=== PATIENT | male | born 1955 | race African-American/Black ===

== ENCOUNTER → 2017-07-20 | Outpatient (CLI) | payer OTHER ==
[~2017-07-20] MED LIST: AMAR2TAB PO; ASPI81TA82 PO; JANU25TA PO; LOSA50TA PO; METO100 PO; PANT20 PO; PRAS10TA PO; ZOCO40TA PO
[2017-07-20 14:25] LABS: AUTOMATED NEUTROPHIL # 2.5 TH/MM3 (1.8-7.7); BASOPHIL % 0.9 % (0.0-2.0); EOSINOPHIL # 0.2 TH/MM3 (0-0.4); EOSINOPHIL % 3.1 % (0.0-4.0); HEMATOCRIT 42.4 % (39.0-51.0); HEMO FLAGS DIFF FINAL; LYMPH % 40.6 % (9.0-44.0); LYMPHOCYTE # 2.2 TH/MM3 (1.0-4.8); MEAN CORPUSCULAR HEMOGLOBIN 28.1 PG (27.0-34.0); MEAN CORPUSCULAR HGB CONC 32.3 % (32.0-36.0); MONO % 9.4 % (0.0-8.0); PLATELET COUNT 194 TH/MM3 (150-450); RED BLOOD COUNT 4.88 MIL/MM3 (4.50-5.90); WHITE BLOOD COUNT 5.4 TH/MM3 (4.0-11.0)
[2017-07-20 14:45] LABS: ANION GAP 8 MEQ/L (5-15); AST (GOT) 22 U/L (15-37); BICARBONATE 25.4 MEQ/L (21.0-32.0); BLOOD UREA NITROGEN 23 MG/DL (7-18); CHLORIDE 106 MEQ/L (98-107); GLOMERULAR FILTRATION RATE 43 ML/MIN (>89); GLUCOSE,FASTING 106 MG/DL (74-99); SODIUM (NA) 139 MEQ/L (136-145)
[2017-07-20 14:50] LABS: ALKALINE PHOSPHATASE 180 U/L (45-117); ALT (GPT) 29 U/L (12-78); TOTAL BILIRUBIN ADULT 0.8 MG/DL (0.2-1.0)
== END ==
LOC: CLAB 13:58
PROVIDERS: ATTEND Family Medicine
DX: I25.10 Atherosclerotic heart disease of native coronary artery without angina pectoris (principal); I12.9 Hypertensive chronic kidney disease with stage 1 through stage 4 chronic kidney disease, or unspecified chronic kidney disease; N18.9 Chronic kidney disease, unspecified; E11.22 Type 2 diabetes mellitus with diabetic chronic kidney disease; E78.2 Mixed hyperlipidemia; J30.1 Allergic rhinitis due to pollen; Z12.5 Encounter for screening for malignant neoplasm of prostate
CPT/HCPCS: 36415; 80053; 84153; 85025

== ENCOUNTER → 2017-11-30 | Outpatient (CLI) | payer OTHER ==
[2017-11-30 08:10] LABS: BICARBONATE 27.2 MEQ/L (21.0-32.0); BLOOD UREA NITROGEN 22 MG/DL (7-18); CALCIUM 9.2 MG/DL (8.5-10.1); CHLORIDE 105 MEQ/L (98-107); CREATININE 1.53 MG/DL (0.60-1.30); GLOMERULAR FILTRATION RATE 56 ML/MIN (>89); GLUCOSE,FASTING 162 MG/DL (74-99); PHOSPHORUS 2.9 MG/DL (2.5-4.9); SODIUM (NA) 140 MEQ/L (136-145)
[2017-11-30 16:53] LABS: HEMOGLOBIN A1C 8.2 % (4.3-6.0)
== END ==
LOC: CLAB 07:19
PROVIDERS: ATTEND Internal Medicine Nephrology
DX: E55.9 Vitamin D deficiency, unspecified (principal); N18.3 Chronic kidney disease, stage 3 (moderate); E11.22 Type 2 diabetes mellitus with diabetic chronic kidney disease
CPT/HCPCS: 36415; 80048; 82043; 82306; 83036; 83970; 84100

== ENCOUNTER → 2018-01-12 | Outpatient (CLI) | payer OTHER ==
[2018-01-12 07:26] LABS: AUTOMATED NEUTROPHIL # 1.8 TH/MM3 (1.8-7.7); BASOPHIL % 0.7 % (0.0-2.0); EOSINOPHIL # 0.2 TH/MM3 (0-0.4); EOSINOPHIL % 3.7 % (0.0-4.0); HEMATOCRIT 42.4 % (39.0-51.0); HEMOGLOBIN 14.2 GM/DL (13.0-17.0); LYMPH % 51.2 % (9.0-44.0); LYMPHOCYTE # 2.6 TH/MM3 (1.0-4.8); MEAN CELL VOLUME 87.9 FL (80.0-100.0); MEAN CORPUSCULAR HEMOGLOBIN 29.4 PG (27.0-34.0); MEAN CORPUSCULAR HGB CONC 33.4 % (32.0-36.0); MEAN PLATELET VOLUME 8.9 FL (7.0-11.0); MONOCYTE # 0.5 TH/MM3 (0-0.9); NEUT % 35.4 % (16.0-70.0); PLATELET COUNT 194 TH/MM3 (150-450); RED BLOOD COUNT 4.83 MIL/MM3 (4.50-5.90); WHITE BLOOD COUNT 5.1 TH/MM3 (4.0-11.0)
[2018-01-12 08:06] LABS: ALBUMIN 3.9 GM/DL (3.4-5.0); ALT (GPT) 41 U/L (12-78); AST (GOT) 32 U/L (15-37); BICARBONATE 31.2 MEQ/L (21.0-32.0); CALCIUM 9.3 MG/DL (8.5-10.1); CHLORIDE 103 MEQ/L (98-107); CREATININE 1.66 MG/DL (0.60-1.30); GLOMERULAR FILTRATION RATE 51 ML/MIN (>89); GLUCOSE,FASTING 183 MG/DL (74-99); SODIUM (NA) 141 MEQ/L (136-145)
[2018-01-12 08:09] LABS: ALKALINE PHOSPHATASE 221 U/L (45-117); BLOOD UREA NITROGEN 22 MG/DL (7-18); TOTAL BILIRUBIN ADULT 0.6 MG/DL (0.2-1.0); TOTAL PROTEIN 7.9 GM/DL (6.4-8.2)
== END ==
LOC: CLAB 06:51
PROVIDERS: ATTEND Family Medicine
DX: I10 Essential (primary) hypertension (principal); E11.9 Type 2 diabetes mellitus without complications; Z12.5 Encounter for screening for malignant neoplasm of prostate
CPT/HCPCS: 36415; 80053; 84153; 85025

== ENCOUNTER 2018-05-30 19:14 | Observation (INO) ==
[2018-05-30] MEDS ORDERED: Aspirin 325 MG Tablet PO ONE ×2 (20:10→20:45)
[2018-05-30 20:53] LABS: Baso % (Auto) 0.5 % (0.0-2.0); Eos # (Auto) 0.2 th/mm3 (0.0-0.4); Eos % (Auto) 2.1 % (0.0-4.0); Hematocrit 44.6 % (39.0-51.0); Hemoglobin 14.4 gm/dL (13.0-17.0); Lymph # (Auto) 2.4 th/mm3 (1.0-4.8); Lymph % (Auto) 31.4 % (9.0-44.0); Mean Corpuscular HGB Conc 32.3 % (32.0-36.0); Mean Corpuscular Hemoglobin 27.9 pg (27.0-34.0); Mean Corpuscular Volume 86.4 fL (80.0-100.0); Mean Platelet Volume 9.6 fL (7.0-11.0); Mono # (Auto) 0.5 th/mm3 (0.0-0.9); Mono % (Auto) 7.3 % (0.0-8.0); Neut # (Auto) 4.4 th/mm3 (1.8-7.7); Neut % (Auto) 58.7 % (16.0-70.0); Platelet Count 209 th/mm3 (150-450); Red Blood Count 5.16 mil/mm3 (4.50-5.90); Red Cell Distribution Width 14.9 % (11.6-17.2); White Blood Count 7.5 th/mm3 (4.0-11.0)
--- NOTE | 2018-05-30 20:58 | XR ---
EXAM DATE: 05/30/2018 8:43 PM EDT AGE/SEX: 62 years / Male INDICATIONS: Chest pain. CLINICAL DATA: This is the patient's initial encounter. Patient reports that signs and symptoms have been present for 1 day and indicates a pain score of 6/10. MEDICAL/SURGICAL HISTORY: Cardiovascular disease. Diabetes. Hypertension. Carotid stent. Cor onary artery stent. COMPARISON: [facility] [place] [facility] ONLY, 07/09/2016. . FINDINGS: A single AP view of the chest demonstrates the lungs to be symmetrically aerated without evidence of mass, infiltrate or effusion. The cardiomediastinal contours are unremarkable. Osseous structures a re intact. CONCLUSION: Negative for acute process report Electronically signed by: Lebron Stafford MD 05/30/2018 8:57 PM EDT
[2018-05-30 21:05] LABS: Activated Partial Thrombo Time 25.9 sec (24.3-30.1); INR 1.1 Ratio; Prothrombin Time 10.8 sec (9.8-11.6)
[2018-05-30 21:22] LABS: Alanine Aminotransferase 24 U/L (12-78); Albumin 3.7 g/dL (3.4-5.0); Alkaline Phosphatase 186 U/L (45-117); Anion Gap 6 meq/L (5-15); Aspartate Aminotransferase 20 U/L (15-37); Blood Urea Nitrogen 20 mg/dL (7-18); Calcium 9.1 mg/dL (8.5-10.1); Carbon Dioxide 28.6 meq/L (21.0-32.0); Chloride 105 meq/L (98-107); Creatine Kinase 237 U/L (39-308); Glomerular Filtration Rate 50 mL/min (>89); Glucose,Random 141 mg/dL (74-106); Potassium 4.5 meq/L (3.5-5.1); Sodium 140 meq/L (136-145)
[2018-05-30 21:35] LABS: Creatine Kinase MB 1.1 ng/mL (0.5-3.6)
[2018-05-30] MEDS ORDERED: Morphine Inj 4 MG/ML Vial IV.PUSH ONE (21:55)
--- NOTE | 2018-05-30 22:12 | ED ---
HPI General Chief Complaint: Chest Pain Stated Complaint: chest pain Time Seen by Provider: 05/30/18 20:02 Source: patient Mode of arrival: ambulatory Limitations: no limitations History of Present Illness HPI narrative: 62-year-old male the presents to the ED for evaluation of left- sided chest pain. Patient has had this left-sided chest pain since . Per patient it comes and goes but more severe today. Per patient last time he had something like this he had 3 stents in his heart. Per patient this happened in 2010. He has a history of diabetes, high blood pressure, high cholesterol and smoking. He states that he follows with cardiology but has not done so in some time. Per patient he has not had a stress test in about a year. No other medical issues. He states the pain currently 7 out of 10. Has a known history of hiatal hernia. No recent travel. No other medical issues. He did took an aspirin today. He does take nitro but has not taken any nitro today. Nothing seems to make the pain better or worse. No other urinary or bowel movement issues. No nausea or vomiting. Pain does radiate to the right jaw. Complete Quality Measures for STEMI Alert Patients Related Data Home Medications Medication Instructions Recorded Confirmed aspirin 81 mg PO DAILY 05/30/18 05/30/18 empagliflozin [Jardiance] 25 mg PO DAILY 05/30/18 05/30/18 glimepiride 2 mg PO QAM 05/30/18 05/30/18 hydralazine 50 mg PO BID 05/30/18 05/30/18 losartan 100 mg PO DAILY 05/30/18 05/30/18 metoprolol tartrate 50 mg PO BID 05/30/18 05/30/18 prasugrel [Effient] 25 mg PO DAILY 05/30/18 05/30/18 simvastatin 20 mg PO QPM 05/30/18 05/30/18 Allergies Allergy/AdvReac Type Severity Reaction Status Date / Time monosodium glutamate Allergy Severe Respiratory Verified 05/30/18 19:57 Failure metformin Allergy Unknown Shortness Verified 05/30/18 19:57 of Breath Review of Systems ROS Unobtainable All other systems reviewed negative except as stated in HPI [facility] Medical History Medical History History of common carotid artery stent placement (Acute) Surgical History Surgical History History of hernia surgery (Acute) Hx of heart surgery (Acute) Hx of neck surgery (Acute) Stented coronary artery (Acute) Social History Social History Smoking Status: Light tobacco smoker Tobacco Type: Cigars How Often Do You Have a Drink Containing Alcohol: Never Recent Travel in [facility] within the Last 8 Weeks: No Recent Out of Country Travel within the Last 8 Weeks: No Immunization History Tetanus Immunization: Unsure Exam Narrative Exam Narrative: GENERAL: Well-appearing SKIN: Focused skin assessment warm/dry. HEAD: Atraumatic. Normocephalic. EYES: Pupils equal and round. No scleral icterus. No injection or drainage. ENT: No nasal bleeding or discharge. Mucous membranes pink and moist. Tongue is midline. No uvuladeviation. NECK: Trachea midline. No JVD. CARDIOVASCULAR: Regular rate and rhythm. No murmur appreciated. RESPIRATORY: No accessory muscle use. Clear to auscultation. Breath sounds equal bilaterally. GASTROINTESTINAL: Abdomen soft, non-tender, nondistended. Hepatic and splenic margins not palpable. MUSCULOSKELETAL: No obvious deformities. No clubbing. No cyanosis. No edema. Full range of motion of the upper and lower extremities bilaterally. 2+ pulses bilaterally. NEUROLOGICAL: Awake and alert. No obvious cranial nerve deficits. Motor grossly within normal limits. Normal speech. PSYCHIATRIC: Appropriate mood and affect; insight and judgment normal. Course Initial Documented Vital Signs Temperature 98.6 F 05/30/18 19:54 Pulse Rate 76 05/30/18 19:54 Respiratory Rate 18 05/30/18 19:54 Blood Pressure 166/85 H 05/30/18 19:54 Pulse Oximetry 97 05/30/18 19:54 Last Documented Vital Signs Temperature 98.6 F 05/30/18 19:54 Pulse Rate 62 05/30/18 20:10 Respiratory Rate 16 05/30/18 20:46 Blood Pressure 156/79 H 05/30/18 20:10 Pulse Oximetry 97 05/30/18 20:14 Medical Decision Making VERÓNICA Attestation VERÓNICA supervised visit: Yes Attestation: The history, exam, and medical decision-making in the associated mid-level provider note were completed with my assistance. I reviewed and agree with the findings presented. I attest that I had a [id number] encounter with the patient on the same day, and personally performed and documented my assessment and findings in the medical record. *My assessment and Findings: 62-year-old man with chest pain, retrosternal, radiating up jaw, similar to previous anginal chest pain. No nausea vomiting. No association with food. EKG is unremarkable. Multiple stents in the past, last cardiac workup was about a year ago with his doctor Dr. Bradley. Workups unremarkable other than minimally elevated lipase. I do not think this is related. History is not suggestive of pancreatitis. Pain relieved with nitro. Will plan on admission no chest pain center for serial cardiac enzymes. MDM Narrative Medical decision making narrative: 62-year-old male the presents to the ED for evaluation of chest pain. Patient was properly examined and was found to have signs and symptoms consistent appears to be chest pain. Concerning for ACS. Labs and imaging order. Labs and imaging were essentially unremarkable. EKG unremarkable. No sign of ST elevations no sign of acute ischemia. Patient did not get relief with aspirin or nitroglycerin. Patient was given morphine for it. Case discussed with my attending Dr. hutchison who recommends admission to the chest pain center. This was discussed with the patient who agrees with admission plan to the chest pain center. Differential Diagnosis Differential Diagnosis: Chest pain versus atypical chest pain versus ACS Medical Records Medical records reviewed: Yes I reviewed the patient's medical records. Lab Data Lab results reviewed: Yes I reviewed the patient's lab results. Lab results narrative: Lipase and troponin and CK-MB negative. Result diagrams: 05/30/18 20:16 05/30/18 20:16 Lab Results 05/30/18 05/30/18 05/30/18 Range/Units 20:16 20:16 20:16 WBC 7.5 (4.0-11.0) th/mm3 RBC 5.16 (4.50-5.90) mil/mm3 Hgb 14.4 (13.0-17.0) gm/dL Hct 44.6 (39.0-51.0) % MCV 86.4 (80.0-100.0) fL MCH 27.9 (27.0-34.0) pg MCHC 32.3 (32.0-36.0) % RDW 14.9 (11.6-17.2) % Plt Count 209 (150-450) th/mm3 MPV 9.6 (7.0-11.0) fL Neut % (Auto) 58.7 (16.0-70.0) % Lymph % (Auto) 31.4 (9.0-44.0) % [place] % (Auto) 7.3 (0.0-8.0) % Eos % (Auto) 2.1 (0.0-4.0) % Baso % (Auto) 0.5 (0.0-2.0) % Neut # (Auto) 4.4 (1.8-7.7) th/mm3 Lymph # (Auto) 2.4 (1.0-4.8) th/mm3 [place] # (Auto) 0.5 (0.0-0.9) th/mm3 Eos # (Auto) 0.2 (0.0-0.4) th/mm3 Baso # (Auto) 0.0 (0.0-0.2) th/mm3 WBC Differential . Differential Comment Auto diff final PT 10.8 (9.8-11.6) sec INR 1.1 Ratio APTT 25.9 (24.3-30.1) sec Sodium 140 (136-145) meq/L Potassium 4.5 (3.5-5.1) meq/L Chloride 105 (98-107) meq/L Carbon Dioxide 28.6 (21.0-32.0) meq/L Anion Gap 6 (5-15) meq/L BUN 20 H (7-18) mg/dL Creatinine 1.68 H (0.60-1.30) mg/dL Estimated GFR 50 L (>89) mL/min Random Glucose 141 H (74-106) mg/dL Calcium 9.1 (8.5-10.1) mg/dL Total Bilirubin 0.7 (0.2-1.0) mg/dL AST 20 (15-37) U/L ALT 24 (12-78) U/L Alkaline Phosphatase 186 H (45-117) U/L Total Creatine Kinase 237 (39-308) U/L CK-MB (CK-2) 1.1 (0.5-3.6) ng/mL Troponin I Less than 0.02 L (0.02-0.05) ng/mL Total Protein 8.0 (6.4-8.2) g/dL Albumin 3.7 (3.4-5.0) g/dL Lipase (73-393) U/L 05/30/18 Range/Units 20:16 WBC (4.0-11.0) th/mm3 RBC (4.50-5.90) mil/mm3 Hgb (13.0-17.0) gm/dL Hct (39.0-51.0) % MCV (80.0-100.0) fL MCH (27.0-34.0) pg MCHC (32.0-36.0) % RDW (11.6-17.2) % Plt Count (150-450) th/mm3 MPV (7.0-11.0) fL Neut % (Auto) (16.0-70.0) % Lymph % (Auto) (9.0-44.0) % [place] % (Auto) (0.0-8.0) % Eos % (Auto) (0.0-4.0) % Baso % (Auto) (0.0-2.0) % Neut # (Auto) (1.8-7.7) th/mm3 Lymph # (Auto) (1.0-4.8) th/mm3 [place] # (Auto) (0.0-0.9) th/mm3 Eos # (Auto) (0.0-0.4) th/mm3 Baso # (Auto) (0.0-0.2) th/mm3 WBC Differential Differential Comment PT (9.8-11.6) sec INR Ratio APTT (24.3-30.1) sec Sodium (136-145) meq/L Potassium (3.5-5.1) meq/L Chloride (98-107) meq/L Carbon Dioxide (21.0-32.0) meq/L Anion Gap (5-15) meq/L BUN (7-18) mg/dL Creatinine (0.60-1.30) mg/dL Estimated GFR (>89) mL/min Random Glucose (74-106) mg/dL Calcium (8.5-10.1) mg/dL Total Bilirubin (0.2-1.0) mg/dL AST (15-37) U/L ALT (12-78) U/L Alkaline Phosphatase (45-117) U/L Total Creatine Kinase (39-308) U/L CK-MB (CK-2) (0.5-3.6) ng/mL Troponin I (0.02-0.05) ng/mL Total Protein (6.4-8.2) g/dL Albumin (3.4-5.0) g/dL Lipase 522 H (73-393) U/L Imaging Data Attestation: I personally reviewed and interpreted this imaging study as follows : Radiologist's impression: Chest X-Ray 05/30/18 20:11 CONCLUSION: Negative for acute process report ECG Data Attestation: I personally reviewed and interpreted this ECG as follows: Interpretation: EKG shows sinus rhythm with no sign of acute ischemia and arrhythmia read by me and attending. No ST elevations. Discharge Plan Discharge Disposition Patient Disposition: 30 Still Patient Discharge Details Diagnosis: Chest pain Physicians Team ED Provider: Husam Hutchison ED Midlevel Provider: Michael Brown Primary Care Provider: Zbigniew Brown Attending Provider: Garth Gallegos Status ED Status: Admitted Observation Patient
[2018-05-30] MEDS ORDERED: Acetaminophen 500 MG Tablet PO PRN (22:27)
[2018-05-30] MEDS ORDERED: Morphine Inj 4 MG/ML Vial IV.PUSH PRN (22:27)
[2018-05-30 23:19] LABS: Creatine Kinase 173 U/L (39-308)
[2018-05-31 03:19] LABS: Creatine Kinase 167 U/L (39-308)
[2018-05-31] MEDS ORDERED: Aspirin 325 MG Tablet PO SCH (09:00)
--- NOTE | 2018-05-31 09:34 | P.HPCA ---
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 He has had 3 stents in the past the first [address] Chavez one in 2000-03-02 in 2007-11/[address]o. He is also had a right endarterectomy carried out by Dr. Guo. He presents now with 4 days of epigastric left lower chest discomfort that began postprandially on this pain is at times severe grating 7-8 out of 10 but is off and on. However on Thursday and Thursday the pain was present most of the day. Is described as a squeezing epigastric pain that radiates through to his back however he also had some right-sided jaw pain reminiscent of discomfort he has had prior to his stents. Associated symptoms include a sense of bloating and feeling full. Precipitating factors are predominantly eating there are no good relieving factors. Patient has a history of diabetes hypertension and hyperlipidemia Review of Systems Review of systems is entirely negative other than current HPI All other systems reviewed negative except as stated in HPI PMFSH - History History Provided By: Patient - Medical History Medical History: Medical History (Last Reviewed 05/30/18 @ 22:09 by DEEPA Lau) History of common carotid artery stent placement - Surgical History Surgical History: Surgical History (Last Updated 05/31/18 @ 09:25 by David Balderas MD) Stented coronary artery (Acute) History of hernia surgery (Acute) Hx of heart surgery Hx of neck surgery - Family History Family History: Family History (Last Updated 05/31/18 @ 09:27 by David Balderas MD) Mother CVA (cerebral vascular accident) Father CVA (cerebral vascular accident) - Tobacco History Second Hand Smoke Exposure: No Tobacco Use In Past 30 Days: Yes Smoking Status: Light tobacco smoker Tobacco Type: Cigars Cigarettes Per Day: 1 - Alcohol History How Often Do You Have a Drink Containing Alcohol: Never - Substance Use History Substance History: No History of Abuse - Travel History Recent Travel in the [place] Within the Last 8 Weeks: No Recent Travel Out of the Country Within the Last 8 Weeks: No - Immunization History Tetanus Immunization: Unsure Medications and Allergies Active Medications: Active Medications Acetaminophen (Tylenol) 500 mg PO Q4H PRN PRN Reason: HEADACHE Hydrocodone Bitart/Acetaminophen ([place] 7.5/325) 1 tab PO Q4H PRN PRN Reason: PAIN SCALE 1 TO 7 Aspirin (Aspirin) 325 mg PO DAILY KESHA Morphine Sulfate (Morphine Inj) 2 mg IV.PUSH Q4H PRN PRN Reason: PAIN SCALE 8 TO 10 Nitroglycerin (Nitrostat Sl) 0.4 mg SL Q5M PRN PRN Reason: CHEST PAIN Ondansetron HCl (Zofran Inj) 4 mg IV.PUSH Q6H PRN PRN Reason: NAUSEA Sodium Chloride (Ns Flush) 2 ml IV.FLUSH BID KESHA Sodium Chloride (Ns Flush) 2 ml IV.FLUSH PRN PRN PRN Reason: FLUSH AFTER USING IV ACCESS Allergies Allergy/AdvReac Type Severity Reaction Status Date / Time monosodium glutamate Allergy Severe Respiratory Verified 05/30/18 19:57 Failure metformin Allergy Unknown Shortness Verified 05/30/18 19:57 of Breath Home Medications Medication Instructions Recorded Confirmed Type aspirin 81 mg PO DAILY 05/30/18 05/31/18 History empagliflozin [Jardiance] 25 mg PO DAILY 05/30/18 05/31/18 History glimepiride 2 mg PO QAM 05/30/18 05/31/18 History hydralazine 50 mg PO BID 05/30/18 05/31/18 History losartan 100 mg PO DAILY 05/30/18 05/31/18 History metoprolol tartrate 50 mg PO BID 05/30/18 05/31/18 History prasugrel [Effient] 25 mg PO DAILY 05/30/18 05/31/18 History simvastatin 20 mg PO QPM 05/30/18 05/31/18 History Exam Vital signs: Vital Signs 05/30/18 19:54 05/30/18 20:10 05/30/18 20:14 Temperature 98.6 F Pulse Rate 76 62 Respiratory Rate 18 16 Blood Pressure 166/85 H 156/79 H Pulse Oximetry 97 97 97 05/30/18 20:46 05/30/18 22:00 05/31/18 01:56 Temperature Pulse Rate 62 60 Respiratory Rate 16 16 Blood Pressure 123/72 Pulse Oximetry 95 05/31/18 02:12 05/31/18 08:00 Temperature 98.4 F 98.4 F Pulse Rate 78 57 L Respiratory Rate 16 18 Blood Pressure 121/78 118/72 Pulse Oximetry 97 96 Intake & Output 05/30/18 05/31/18 05/31/18 18:59 06:59 18:59 Output Total 300 / 300 Balance -300 / -300 Weight 105 kg Output: Urine 300 / 300 Other: Date of Last Bowel Movement 05/30/18 Narrative: Well-nourished well-developed man resting comfortably in bed Head normocephalic atraumatic balding Eyes PERRLA EOMI. Bilateral cataracts mild. EOMI. Sclera clear no lesions Nares are open bilaterally with no obstruction or lesions Mouth mucous membranes moist and well papillated upper partial plate in place there are no lesions good dentition no inflammation Neck is supple no JVD masses nodes or bruits there is a well-healed surgical scar on the right side from an endarterectomy Chest is clear to auscultation with no rales wheezes or rhonchi and good bilateral breath sounds Cardiovascular PMI is not displaced there is a 2/6 systolic murmur but no gallop or rub The abdomen is slightly tender in the left epigastric area however there is no guarding or rebound and no masses palpable Extremities no clubbing cyanosis or edema pulses are intact and there is no tenderness heat or swelling Neurologically cranial nerves are intact motor is 4+ to all extremities Psychiatrically patient is alert oriented demonstrates good memory affect and judgment Results 05/30/18 20:16 05/30/18 20:16 Cardiac Enzymes 05/30/18 05/30/18 05/31/18 Range/Units 20:16 22:55 02:33 AST 20 (15-37) U/L CK-MB (CK-2) 1.1 (0.5-3.6) ng/mL Troponin I Less than 0.02 L Less than 0.02 L Less than 0.02 L (0.02-0.05) ng/mL Coagulation 05/30/18 Range/Units 20:16 PT 10.8 (9.8-11.6) sec APTT 25.9 (24.3-30.1) sec CBC 05/30/18 Range/Units 20:16 WBC 7.5 (4.0-11.0) th/mm3 RBC 5.16 (4.50-5.90) mil/mm3 Hgb 14.4 (13.0-17.0) gm/dL Hct 44.6 (39.0-51.0) % Plt Count 209 (150-450) th/mm3 Neut # (Auto) 4.4 (1.8-7.7) th/mm3 Lymph # (Auto) 2.4 (1.0-4.8) th/mm3 [place] # (Auto) 0.5 (0.0-0.9) th/mm3 Eos # (Auto) 0.2 (0.0-0.4) th/mm3 Baso # (Auto) 0.0 (0.0-0.2) th/mm3 Comprehensive Metabolic Panel 05/30/18 Range/Units 20:16 Sodium 140 (136-145) meq/L Potassium 4.5 (3.5-5.1) meq/L Chloride 105 (98-107) meq/L Carbon Dioxide 28.6 (21.0-32.0) meq/L BUN 20 H (7-18) mg/dL Creatinine 1.68 H (0.60-1.30) mg/dL Calcium 9.1 (8.5-10.1) mg/dL AST 20 (15-37) U/L ALT 24 (12-78) U/L Alkaline Phosphatase 186 H (45-117) U/L Total Protein 8.0 (6.4-8.2) g/dL Albumin 3.7 (3.4-5.0) g/dL Intake and Output 05/30/18 05/31/18 05/31/18 22:59 06:59 14:59 Output Total 300 / 300 Balance -300 / -300 Output: Urine 300 / 300 Other: Date of Last Bowel Movement 05/30/18 Weight 105 kg 105 kg - Imaging and Cardiology Cardiac cath: report reviewed EKG results: report reviewed (Patient shows elevated alkaline phosphatase and lipase consistent with mild pancreatitis which would also be consistent with his current presentation) Caprini VTE Risk Assessment Caprini VTE Risk Assessment: No/Low Risk (score <= 1) Caprini Risk Assessment Model: Point Value = 1 Point Value = 2 Point Value = 3 Point Value = 5 Age 41-60 Minor surgery BMI > 25 kg/m2 Swollen legs Varicose veins or History of unexplained or recurrent spontaneous Oral contraceptives or hormone replacement Sepsis (< 1 month) Serious lung disease, including pneumonia (< 1 month) Abnormal pulmonary function Acute myocardial infarction Congestive heart failure (< 1 month) History of inflammatory bowel disease Medical patient at bed rest Age 61-74 Arthroscopic surgery Major open surgery (> 45 min) Laparoscopic surgery (> 45 min) Malignancy Confined to bed (> 72 hours) Immobilizing plaster cast Central venous access Age >= 75 History of VTE Family history of VTE Factor V Leiden Prothrombin [id number] Lupus anticoagulant Anticardiolipin antibodies Elevated serum homocysteine Heparin-induced thrombocytopenia Other congenital or acquired thrombophilia Stroke (< 1 month) Elective arthroplasty Hip, pelvis, or leg fracture Acute spinal cord injury (< 1 month) Prophylaxis Regimen: Total Risk Factor Score Risk Level Prophylaxis Regimen 0-1 Low Early ambulation 2 Moderate Order ONE of the following: *Sequential Compression Device (SCD) *Heparin 5000 units SQ BID 3-4 Higher Order ONE of the following medications: *Heparin 5000 units SQ TID *Enoxaparin/Lovenox 40 mg SQ daily (WT < 150 kg, CrCl > 30 mL/min) *Enoxaparin/Lovenox 30 mg SQ daily (WT < 150 kg, CrCl > 10-29 mL/min) *Enoxaparin/Lovenox 30 mg SQ BID (WT < 150 kg, CrCl > 30 mL/min) AND/OR *Sequential Compression Device (SCD) 5 or more Highest Order ONE of the following medications: *Heparin 5000 units SQ TID (Preferred with Epidurals) *Enoxaparin/Lovenox 40 mg SQ daily (WT < 150 kg, CrCl > 30 mL/min) *Enoxaparin/Lovenox 30 mg SQ daily (WT < 150 kg, CrCl > 10-29 mL/min) *Enoxaparin/Lovenox 30 mg SQ BID (WT < 150 kg, CrCl > 30 mL/min) AND *Sequential Compression Device (SCD) Assessment and Plan - Plan Patient is ruled out for ACS however because of his history we will proceed with a nuclear stress test His symptoms and laboratory data is consistent with mild pancreatitis. Since some of his medications to increase this risk and discussion will be carried out with Dr. tee Spence regarding further evaluation and treatment. - Attending Attestation I attest that this patient's evaluation treatment encoding is consistent with appropriate approved procedure H&P: Quality - VTE Deep Vein Thrombosis/Pulmonary Embolism Present on Admission: No
[2018-05-31] MEDS ORDERED: hydrALAZINE 50 MG Tablet PO SCH (09:45)
[2018-05-31] MEDS ORDERED: Regadenoson Inj 0.4 MG/5 ML Syringe IV.PUSH ONE (10:54)
--- NOTE | 2018-05-31 12:23 | NM ---
EXAM DATE: 05/31/2018 11:52 AM EDT AGE/SEX: 62 years / Male INDICATIONS:Angina. . Chest pain x 5 days radiating to Rt Jaw CLINICAL DATA: This is the patient's initial encounter. Patient reports that signs and symptoms have been present for 4 - 6 days and indicates a pain score of 7/10. MEDICAL/SURGICAL HISTORY: Diabetes. Hypertension. Carotid stent. Hernia, Heart and neck surger y COMPARISON: No prior exams available for comparison. No external comparison. DOSE: 11 mCi Tc 99m Myoview at rest 35 mCi [id number] at stress 0.4 mg Lexiscan STRESS SYMPTOMS: Short of breath, headache and stomach cramps. EJECTION FRACTION: 48 % TECHNIQUE: The patient underwent pharmacologic stress with infusion of prescribed dose. Continuous ECG tracing was monitored during stress. Gated SPECT imaging was performed after stress and conventi onal SPECT imaging was performed at rest. The examination was performed on a SPECT/CT scanner, both attenuation and non-corrected datasets were reviewed. FINDINGS: Distribution: The maximum perfused segment at stress is in the septal wall. Perfusion Study: The pattern of perfusion at stress is within normal limits. Gated Study: There are intact wall motion and wall thickening without hypokinetic or dyskinetic segm ents. The ejection fraction is calculated at 48%. RISK CATEGORY: Low (<1% Annual Motality Rate) CONCLUSION: No definite areas of ischemia are seen. Electronically signed by: Jae Mosqueda MD 05/31/2018 12:22 PM EDT
[2018-05-31 12:48] VITALS: RESP 20
[2018-05-31 15:53] VITALS: BP 132/75; PULSE 78; TEMP 98.2; O2SAT 96
[2018-05-31] MEDS ORDERED: Metoprolol Tartrate 50 MG Tablet PO SCH (21:00)
--- NOTE | 2018-06-01 16:53 | TR ---
Date Performed: 05/31/2018 Time Performed: 10:47:34 DOCTOR: Angie Tuttle DRUG LIST: CLINICAL HISTORY: REASON FOR TEST: REASON FOR ENDING: OBSERVATION: CONCLUSION: Lexiscan stress test was performed under standard four minute protocol. Radionuclid e was injected one minute prior to ending the test. No electrocardiographic abormalities were present to suggest ischemia. Nuclear imaging and interpretation are pending. COMMENTS: no ischemia
--- NOTE | 2018-06-01 16:57 | ECG ---
Date Performed: 05/30/2018 Time Performed: 22:50:25 PTAGE: 62 years EKG: SINUS BRADYCARDIA BORDERLINE ECG Since PREVIOUS TRACING , no significant change noted PREVIOUS TRACIN05/30/2018 20.13 DOCTOR: Angie Tuttle Interpretating Date/Time 06/01/2018 16:55:48
--- NOTE | 2018-06-01 16:58 | ECG ---
Date Performed: 05/30/2018 Time Performed: 20:13:28 PTAGE: 62 years EKG: Sinus rhythm NORMAL ECG Since PREVIOUS TRACING , no significant change noted PREVIOUS TRACIN08/15/2016 10.16 DOCTOR: Angie Tuttle Interpretating Date/Time 06/01/2018 16:56:59
== END 2018-05-31 17:50 | disposition home or self-care (01) ==
LOC: NEPC 19:14 → NEDA 19:14 → NEPHCDU 19:14
DX: I10 Essential (primary) hypertension; Z79.84 Long term (current) use of oral hypoglycemic drugs; E78.00 Pure hypercholesterolemia, unspecified; I25.10 Atherosclerotic heart disease of native coronary artery without angina pectoris; F17.200 Nicotine dependence, unspecified, uncomplicated; R07.89 Other chest pain; Z82.3 Family history of stroke; E11.9 Type 2 diabetes mellitus without complications; E78.5 Hyperlipidemia, unspecified; Z95.5 Presence of coronary angioplasty implant and graft; Z79.82 Long term (current) use of aspirin